=== PATIENT | female | born 1960 | race Caucasian/White ===

== ENCOUNTER 2023-03-23 21:48 | Emergency (ER) | payer MEDICARE, MEDICAID, SELFPAY ==
--- NOTE | ~2023-03-23 | CT_ITS ---
EXAMINATION: CT HEAD WITHOUT CONTRAST CLINICAL INFORMATION: Fall. COMPARISON: None. TECHNIQUE: Contiguous axial imaging was performed from the skull base to vertex without intravenous administration of contrast. Coronal and sagittal reformatted images are performed at the CT scanner. [This CT examination was performed using dose optimization techniques as appropriate, variously including the following: *Automated exposure control *Adjustment of mA and/or kV according to patient size (this includes techniques or standardized protocols for targeted exams where dose is matched to indication/reason for exam; i.e. extremities or head) *Use of iterative reconstruction technique] DLP: 610 mGy-cm. FINDINGS: Status post craniotomy the left tawspak-mjqutrre-kwgejsqt lobe and the right frontal-parietal lobe. There are associated areas of focal encephalomalacia adjacent to the craniotomy flaps in the right frontal lobe and the left frontal temporal lobe. Surgical clip in the supraclinoid area on the right. This causes streak artifact. There is no evidence of acute intracranial hemorrhage or territorial infarction. No abnormal mass-effect or midline shift is seen. Verma to white matter differentiation is well preserved. No extra-axial fluid collections are identified. The mastoid air cells and visualized portions of the paranasal sinuses are well-aerated. CT/CT head/brain wo IV con IMPRESSION: No acute intracranial pathology.
--- NOTE | ~2023-03-23 | XR_ITS ---
EXAMINATION: XR LUMBOSACRAL SPINE CLINICAL INFORMATION: Fall. COMPARISON: None available. TECHNIQUE: Three views of the lumbosacral spine. FINDINGS: Mild compression deformity of the L1 vertebral body. No evidence of subluxation. Mild multilevel intervertebral disc height loss. Small anterior osteophytes. Moderate facet arthropathy in the lower lumbar spine leading to certain degree of neural foraminal encroachment at L5-S1. SI joints are symmetric. No significant paraspinal soft tissue abnormality. XR/XR lumbar spine 2-3V IMPRESSION: 1. Mild compression deformity of the L1 vertebral body of indeterminate age. Correlate for point tenderness. 2. No evidence of traumatic subluxation. 3. Mild to moderate lumbar spondylosis.
[2023-03-23 22:01] VITALS: BP 160/88; BP 164/77; PULSE 60; PULSE 66; RESP 18; TEMP 36.7; O2SAT 98
--- NOTE | 2023-03-23 22:17 | ED_ITS ---
HPI - Fall General Chief Complaint: Fall Stated Complaint: SLIP AND FALL - LOC FROM CORRECTION Time Seen by Provider: 03/23/23 21:53 Source: patient Mode of arrival: EMS Limitations: no limitations History of Present Illness HPI Narrative: 62 yo female with PMH of seizures and HLD here with c/o falling backwards in a chair and hitting her head she now has a headache not on thinners and has low back pain. No n/v no numbness or weakness. MD complaint: fall Onset (ago): minute(s) (just prior to arrival ) Fall from: chair Fall witnessed: yes, by bystander Place fall occurred: home Loss of consciousness: none Prolonged down time: no Symptoms prior to fall: none Context: tripped/slipped Location of injury: head and back Severity: moderate Quality: dull and aching Associated symptoms (after fall): headache Related Data Previous Rx's Medication Instructions Recorded lidocaine 5 % topical patch 1 patch topical DAILY #30 ea 03/23/23 Allergies Allergy/AdvReac Type Severity Reaction Status Date / Time bee pollen [bee stings] Allergy Anaphylaxis Verified 03/23/23 22:20 peanut Allergy Anaphylaxis Verified 03/23/23 22:20 diphenhydramine AdvReac Unknown Verified 03/23/23 22:20 [From Benadryl] iodine AdvReac Unknown Verified 03/23/23 22:20 Review of Systems Review of Systems: Constitutional : No Fever, No Chills, No Fatigue ENT/Mouth : No sore throat, No Rhinorrhea Eyes: No Eye Pain, No Swelling, No Redness Cardiovascular : No Chest Pain, No SOB, No Dyspnea on Exertion Respiratory : No Cough, No Sputum Gastrointestinal : No Nausea, No Vomiting, No Diarrhea, No abdominal Pain Genitourinary : No Dysuria, No Urinary Frequency, No Hematuria, Musculoskeletal : No joint pain, No Myalgias, No Joint Swelling, pos back pain Skin : No Skin Lesions, No rash Neuro : No Weakness, No Numbness, No Dizziness, positive Headache Psych : No Anxiety/Panic, No Depression Heme/Lymph: No Bruising, No Bleeding,No Lymphadenopathy Endocrine : No Polyuria, No Polydipsia All other systems reviewed and are negative PMFSH Past Medical History Attestation statement: The following information was validated with the patient. Source: old records reviewed Medical History Hyperlipidemia Seizure Social History Social History (Updated 03/23/23 @ 22:19 by Mariana Ochoa DO) Patient Tobacco Use Status: Tobacco use Unknown Advance Directives: No Advance Directives Information Provided: Yes Physical Exam Vital Signs: Vital Signs: Last Vital Signs Temp 98.1 F 03/23/23 22:01 Pulse 66 03/23/23 22:01 Resp 18 03/23/23 22:01 BP 164/77 H 03/23/23 22:01 Pulse Ox 98 03/23/23 22:01 O2 Del Method Room Air 03/23/23 22:01 BMI result Body Mass Index 30.0 Appearance: Alert. Oriented X3. No acute distress. Eyes: Pupils equal, round and reactive to light. ENT: Pharynx normal. ttp and contusion noted on occiput Neck: Normal inspection. Neck supple. no midline ttp CVS: Normal heart rate and rhythm. Pulses normal. Respiratory: No respiratory distress. Breath sounds normal. Abdomen: Soft and nontender. Back: ttp along lower lumbar area no step offs Skin: Skin warm and dry. Normal skin color. Normal skin turgor. Extremities: No lower extremity edema. No calf ttp Neuro: Oriented X 3. No motor deficit. No sensory deficit. Course Course Course Narrative: has lower back pain could be compression fracture of L1 will DC home with PO medications and lidocaine patches Medical Decision Making Medical Decision Making [facility] Narrative: 62 yo female with PMH of seizures and HLD here with c/o fall out of chair not on thinners no LOC c/o headache and low back pain she is GCS 15 and has no numnbess or weakness no other injury distal NV intact can move legs this was mechanical in nature at this time xrays and CT head for trauma ordered. Differential Diagnosis Differential Diagnoses: The differential diagnosis associated with the presentation includes head injury, concussion, sprain, strain, ICH Admission/Observation Consideration of admission/observation: Escalation of care including admission/observation considered Independent Interpretation I performed an independent interpretation of an: Plain X-Ray and CT Scan Radiology Impression Discussion of test interpretation with radiology: I have reviewed the radiologist's reading. Independent Historian Clinical information obtained from an independent historian. History obtained from or confirmed by: EMS Discharge Plan Discharge Clinical Impression: Head injury Qualifiers: Encounter type: initial encounter Qualified Code(s): S09.90XA - Unspecified injury of head, initial encounter Back injury Qualifiers: Encounter type: initial encounter Qualified Code(s): S39.92XA - Unspecified injury of lower back, initial encounter Patient Disposition: Home, Self-Care Instructions: Head Injury (ED), Back Pain (ED) Additional Instructions: there is a possible lumbar compression fracture (crunching down) of L1 - this is mild but it is hard to say if it is new or old it is higher than where you say you have pain. you can take tylenol or motrin for this pain. we are going to prescribe you pain patches as well. return for vomiting, confusion, numbness, weakness, loss of control of bowel or bladder. your doctor can also follow up with you on this as well and maybe refer you to physical therapy if necessary your CT head was normal Prescriptions: New lidocaine 5 % adhesive patch,medicated 1 patch topical DAILY Qty: 30 0RF Rx Instructions: leave on most painful area for up to 12 hrs
== END 2023-03-23 23:25 | disposition home or self-care (01) ==
PROVIDERS: Emergency Provider Emergency Medicine; PCP Physician Assistant
DX: S09.90XA Unspecified injury of head, initial encounter (principal); S39.92XA Unspecified injury of lower back, initial encounter; W07.XXXA Fall from chair, initial encounter; Y93.9 Activity, unspecified; Y92.009 Unspecified place in unspecified non-institutional (private) residence as the place of occurrence of the external cause; Y99.9 Unspecified external cause status
CPT/HCPCS: 70450; 72100; 99282; 99284

== ENCOUNTER 2024-03-06 08:31 | Emergency (ER) | payer MEDICARE, MEDICAID, SELFPAY ==
--- NOTE | ~2024-03-06 | CT_ITS ---
EXAMINATION: CT HEAD WITHOUT CONTRAST CLINICAL INFORMATION: History of cerebral aneurysm, now complains of left upper limb numbness COMPARISON: CT scan of brain on 03/23/2023 TECHNIQUE: Contiguous axial imaging was performed from the skull base to vertex without intravenous administration of contrast. This CT examination was performed using dose optimization techniques as appropriate, variously including the following: *Automated exposure control *Adjustment of mA and/or kV according to patient size (this includes techniques or standardized protocols for targeted exams where dose is matched to indication/reason for exam; i.e. extremities or head) *Use of iterative reconstruction technique DLP: 678 mGy-cm FINDINGS: Ventricles, sulci and cisterns are dilated. There is marked asymmetric dilatation of left temporal horn.. Extensive cystic encephalomalacia is seen in the left temporal pole extending to posterior superior left temporal lobe. 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 Extensive cystic encephalomalacia is seen in the right frontal lobe and right external capsule, associated with mild asymmetric dilatation of the right frontal horn. Rectangular shape encephalomalacia is seen in lateral left frontal lobe starting above the left sylvian fissure. There is no midline shift, no abnormal intra- or extra- axial fluid accumulation. Verma and white matter differentiation is normal. Bone window images show no evidence of skull fracture. Unchanged extensive left frontal temporoparietal craniotomy bone flap, fixation with surgical plates, right frontal craniotomy bone flap, fixation with surgical plates are seen. CT/CT head/brain wo IV con IMPRESSION: 1. No acute intracranial hemorrhage or infarction. 2. Unchanged Extensive cystic encephalomalacia in the left temporal pole extending to posterior superior left temporal lobe. 3. Unchanged Extensive cystic encephalomalacia in the right frontal lobe and right external capsule. 4. Unchanged Rectangular shape encephalomalacia in lateral left frontal lobe starting above the left Sylvian fissure. 5. 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 6. Unchanged extensive left frontal temporoparietal craniotomy bone flap, fixation with surgical plates, right frontal craniotomy bone flap, fixation with surgical plates. 7. Unchanged cerebral atrophy and asymmetric ventriculomegaly as described above. Electronically signed by: Donald Boyd MD 03/06/2024 02:13 PM EDT
[2024-03-06 08:33] VITALS: BP 165/100; PULSE 60; O2SAT 96
[2024-03-06 08:35] VITALS: BP 154/83; PULSE 58; RESP 16; TEMP 36.9; O2SAT 98; BMI 29.2
--- NOTE | 2024-03-06 08:58 | ECG_ITS ---
Test Reason : PARASTHESIA Blood Pressure : / mmHG Vent. Rate : 056 BPM Atrial Rate : 056 BPM P-R Int : 170 ms QRS Dur : 098 ms QT Int : 444 ms P-R-T Axes : 033 -02 036 degrees QTc Int : 428 ms Sinus bradycardia Minimal voltage criteria for LVH, may be normal variant ( [place] product ) Borderline ECG No previous ECGs available Referred By: Mariana Ochoa Electronically Signed By:VICENTE TOLEDO
--- NOTE | 2024-03-06 08:59 | ED_ITS ---
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 It goes aware after some time. She has no other symptoms anywhere else. It has been two mornings in a row so she wanted to get checked out. Denies issues in the neck or neck pain no recent trauma. MD complaint: L hand tingling Onset (ago): day(s) (2) Location: left and upper extremity Radiation: non-radiation Severity: mild Relieving factors: none Exacerbating factors: other (sleeping) Associated symptoms: denies other symptoms Treatments prior to arrival: none Related Data Previous Rx's ?Medication ?Instructions ?Recorded lidocaine 5 % topical patch 1 patch topical DAILY #30 ea 03/23/23 Allergies Allergy/AdvReac Type Severity Reaction Status Date / Time bee pollen [bee stings] Allergy Anaphylaxis Verified 03/06/24 08:41 peanut Allergy Anaphylaxis Verified 03/06/24 08:41 diphenhydramine AdvReac Unknown Verified 03/06/24 08:41 [From Benadryl] iodine AdvReac Unknown Verified 03/06/24 08:41 Review of Systems 2 Review of Systems: Constitutional : No Fever, No Chills, No Fatigue ENT/Mouth : No sore throat, No Rhinorrhea Eyes: No Eye Pain, No Swelling, No Redness Cardiovascular : No Chest Pain, No SOB, No Dyspnea on Exertion Respiratory : No Cough, No Sputum Gastrointestinal : No Nausea, No Vomiting, No Diarrhea, No abdominal Pain Genitourinary : No Dysuria, No Urinary Frequency, No Hematuria, Musculoskeletal : No joint pain, No Myalgias, No Joint Swelling Skin : No Skin Lesions, No rash Neuro : No Weakness, pos Numbness, No Dizziness, no Headache Psych : No Anxiety/Panic, No Depression All other systems reviewed and are negative [facility] Past Medical History Attestation statement: The following information was validated with the patient. Source: old records reviewed Medical History Hyperlipidemia Seizure Social History Social History Alcohol intake: former Patient Tobacco Use Status: Tobacco use Unknown Smoked in Last 30 Days: No Use of substances other than those prescribed or required for medical reasons: No Advance Directives: No Advance Directives Information Provided: Yes Do you have a plan to hurt others: No Plan Patient : No Physical Exam ED Vital Signs: Vital Signs - 24 hr 03/06/24 08:35 03/06/24 09:48 Temperature 98.5 F 97.9 F Pulse Rate 58 58 Respiratory Rate 16 18 Blood Pressure 154/83 H 145/91 H Pulse Oximetry 98 98 Oxygen Delivery Method Room Air Room Air BMI result Body Mass Index 29.2 Appearance: Alert. Oriented X3. No acute distress. Eyes: Pupils equal, round and reactive to light. ENT: Pharynx normal. Neck: Normal inspection. Neck supple. CVS: Normal heart rate and rhythm. Pulses normal. Respiratory: No respiratory distress. Breath sounds normal. Abdomen: Soft and nontender. Skin: Skin warm and dry. Normal skin color. Normal skin turgor. Extremities: No lower extremity edema. Neuro: Oriented X 3. No motor deficit. No sensory deficit. 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 Will obtain basic labs, CT head given aneurysms - suspect more peripheral lesion as it is in the fingertips and she does not relay a motor component which seems more like peripheral nerve compression. Differential Diagnosis Differential Diagnoses: The differential diagnosis associated with the presentation includes peripheral nerve compression, parasthesia, anxiety Admission/Observation Consideration of admission/observation: Escalation of care including admission/observation considered no acute findings stable for DC Lab Data [facility] Lab Attestation statement: I reviewed the patient's lab results. 03/06/24 09:45 03/06/24 11:34 Labs: Lab Results 03/06/24 03/06/24 Range/Units 09:45 11:34 WBC 7.2 (4.8-10.8) X10*3/uL RBC 4.31 (4.20-5.50) X10*6/uL Hgb 13.7 (12.0-16.0) g/dl Hct 39.5 (37.0-47.0) % MCV 91.6 (80.0-98.0) fL MCH 31.8 (27.0-33.0) pg MCHC 34.7 (31.0-35.0) g/dl RDW 12.3 (11.0-16.0) % Plt Count 220 (160-400) X10*3/uL MPV 9.4 (9.4-12.3) fL Immature Gran % (Auto) 0.4 (0.0-0.4) % Neut % (Auto) 46.7 (45-73) % Lymph % (Auto) 43.2 H (20-40) % Grainger % (Auto) 6.0 (2-11) % Eos % (Auto) 2.9 (0-4) % Baso % (Auto) 0.8 (0-2) % Lymph # (Auto) 3.1 (1.2-4.9) X10*3/uL Grainger # (Auto) 0.4 (0.1-1.2) X10*3/uL Eos # (Auto) 0.2 (0.0-0.4) X10*3/uL Baso # (Auto) 0.1 (0.0-0.2) X10*3/uL Abs Immat Gran (auto) 0.03 (0.00-0.03) X10*3/uL Absolute Neuts (auto) 3.4 (2.0-8.3) x10*3/uL Absolute Nucleated RBC 0.000 (0.0-0.012) X10*3/uL Nucleated RBC % (auto) 0.0 (0.0-0.2) /100WBC PT 11.8 (11.1-13.3) SEC INR 1.0 (0.9-1.1) Sodium 142 (135-145) mmol/L Potassium 4.0 (3.3-5.1) mmol/L Chloride 111 H (96-108) mmol/L Carbon Dioxide 23 (22-29) mmol/L Anion Gap 12 (12-20) BUN 13 (9-16) mg/dL Creatinine 0.83 (0.5-1.4) mg/dL Estim Creat Clear Calc 72.3 Estimated GFR > 60 Random Glucose 93 (60-115) mg/dL Calcium 8.8 (8.4-10.2) mg/dL Magnesium 1.9 (1.6-2.6) mg/dL Total Bilirubin 0.5 (0.0-1.0) mg/dL Direct Bilirubin 0.1 (0.0-0.5) mg/dL AST 18 (5-31) U/L ALT 16 (0-31) U/L Alkaline Phosphatase 78 (39-117) U/L Troponin I High Sens < 2.7 (<3.5-17.0) ng/L Total Protein 6.8 (6.5-8.0) g/dL Albumin 4.1 (3.5-5.0) g/dL Lipase 137 H (8-78) U/L Independent Interpretation I performed an independent interpretation of an: EKG and CT Scan (unchanged) Interpretation: Rate: 56 Rhythm: sinus bradycardia [place]: left Normal P waves. Normal ERVIN. Normal QRS complex. ST T wave : inverted t waves V1, no ARY qTC: 428 prior studies: no acute ischemia The study has been interpreted contemporaneously by me. . Radiology Impression Discussion of test interpretation with radiology: I have reviewed the radiologist's reading. Independent Historian Clinical information obtained from an independent historian. History obtained from or confirmed by: EMS External Record Review External record reviewed: Outpatient record Discharge Plan Discharge Clinical Impression: Paresthesia of hand Patient Disposition: Home, Self-Care Instructions: Paresthesia (ED) Additional Instructions: no acute findings on exam today at this time CT head negative follow up with your doctor return for any worsening symptoms or concerns CT/CT head/brain wo IV con IMPRESSION: 1. No acute intracranial hemorrhage or infarction. 2. Unchanged Extensive cystic encephalomalacia in the left temporal pole extending to posterior superior left temporal lobe. 3. Unchanged Extensive cystic encephalomalacia in the right frontal lobe and right external capsule. 4. Unchanged Rectangular shape encephalomalacia in lateral left frontal lobe starting above the left Sylvian fissure. 5. 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 6. Unchanged extensive left frontal temporoparietal craniotomy bone flap, fixation with surgical plates, right frontal craniotomy bone flap, fixation with surgical plates. 7. Unchanged cerebral atrophy and asymmetric ventriculomegaly as described above. Prescriptions: No Action lidocaine 5 % adhesive patch,medicated 1 patch topical DAILY Qty: 30 0RF Rx Instructions: leave on most painful area for up to 12 hrs Print Language: Ukrainian
[2024-03-06 09:48] VITALS: BP 145/91; PULSE 58; RESP 18; TEMP 36.6; O2SAT 98
[2024-03-06 09:54] LABS: MANUAL DIFF FLAG NO
[2024-03-06 09:56] LABS: Basophils Absolute Auto 0.1 X10*3/uL (0.0-0.2); Basophils Percent Auto 0.8 % (0-2); Eosinophils Absolute Auto 0.2 X10*3/uL (0.0-0.4); Eosinophils Percent Auto 2.9 % (0-4); Hematocrit 39.5 % (37.0-47.0); Hemoglobin 13.7 g/dl (12.0-16.0); Imm Gran Abs Auto 0.03 X10*3/uL (0.00-0.03); Imm Gran Pct Auto 0.4 % (0.0-0.4); Lymphocytes Absolute Auto 3.1 X10*3/uL (1.2-4.9); Lymphocytes Percent Auto 43.2 % (20-40); Mean Corpuscular HGB Conc 34.7 g/dl (31.0-35.0); Mean Corpuscular Hemoglobin 31.8 pg (27.0-33.0); Mean Corpuscular Volume 91.6 fL (80.0-98.0); Mean Platelet Volume 9.4 fL (9.4-12.3); Monocytes Absolute Auto 0.4 X10*3/uL (0.1-1.2); Neutrophils Absolute Auto 3.4 x10*3/uL (2.0-8.3); Neutrophils Percent Auto 46.7 % (45-73); Platelet Count 220 X10*3/uL (160-400); Red Blood Count 4.31 X10*6/uL (4.20-5.50); Red Cell Distribution Width 12.3 % (11.0-16.0); White Blood Count 7.2 X10*3/uL (4.8-10.8)
[2024-03-06 10:07] LABS: Prothrombin Time 11.8 SEC (11.1-13.3)
[2024-03-06 10:20] LABS: Troponin-I High Sensitivity < 2.7 ng/L (<3.5-17.0)
[2024-03-06 12:12] LABS: Alanine Aminotransferase 16 U/L (0-31); Albumin Level 4.1 g/dL (3.5-5.0); Alkaline Phosphatase 78 U/L (39-117); Anion Gap 12 (12-20); Aspartate Amino Transferase 18 U/L (5-31); Bilirubin Direct 0.1 mg/dL (0.0-0.5); Bilirubin Total 0.5 mg/dL (0.0-1.0); Blood Urea Nitrogen 13 mg/dL (9-16); Calcium 8.8 mg/dL (8.4-10.2); Carbon Dioxide 23 mmol/L (22-29); Chloride 111 mmol/L (96-108); Creatinine Clr Calc Pharmacy 72.3; Estimated Glomerular Filt Rate > 60; Glucose Random 93 mg/dL (60-115); Lipase 137 U/L (8-78); Magnesium 1.9 mg/dL (1.6-2.6); Sodium 142 mmol/L (135-145); Total Protein 6.8 g/dL (6.5-8.0)
[2024-03-06 14:30] VITALS: BP 143/82; PULSE 77; RESP 18; TEMP 36.6; O2SAT 98
== END 2024-03-06 14:31 | disposition home or self-care (01) ==
PROVIDERS: Emergency Provider Emergency Medicine; PCP Physician Assistant
DX: R20.2 Paresthesia of skin (principal); R00.1 Bradycardia, unspecified; F41.9 Anxiety disorder, unspecified; I10 Essential (primary) hypertension; Z79.899 Other long term (current) drug therapy
CPT/HCPCS: 36415; 70450; 80048; 80076; 83690; 83735; 84484; 85025; 85610; 93005; 99284

== ENCOUNTER 2024-07-24 10:57 | Emergency (ER) | payer MEDICARE, MEDICAID, SELFPAY ==
[2024-07-24 11:14] VITALS: BP 149/83; BP 151/79; PULSE 62; PULSE 66; RESP 14; TEMP 36.8; O2SAT 95; O2SAT 96; BMI 30.6
--- NOTE | 2024-07-24 11:18 | ED.GENADULT ---
HPI - General Adult General Chief complaint: Eye Problems Stated complaint: from [facility], popped blood vessel L eye, hx aneurysm Time Seen by Provider: 07/24/24 11:15 Source: patient and EMS Mode of arrival: EMS Limitations: no limitations History of Present Illness ED Provider: Chelle Newton PA-C HPI narrative: Patient is a 64 year old assigned female at with a history of brain aneurysm with clips presenting to the emergency department today with left eye redness and painful / more frequent urination. Patient states that over the last 3 days she has had redness in her left eye that is not painful but she was concerned given her aneurysm history. Patient denies any visual disturbance or headache. Patient states that she would also like her urine checked because she is having increased urinary frequency and pain with urination. Patient denies any dizziness, lightheadedness, abdominal pain, nausea, vomiting, fever, chills, blurry vision, double vision, loss of vision, chest pain, difficulty breathing, shortness of breath, back pain, night sweats, increased urinary urgency, blood in her urine or stool, syncope or a near syncopal episode, recent trauma or falls, bowel incontinence, bladder incontinence, or any other complaints at this time. Onset (ago): day(s) (3) Location: eyes and left Relieving factors: none Exacerbating factors: none Associated symptoms: denies other symptoms Treatments prior to arrival: none Related Data Previous Rx's ?Medication ?Instructions ?Recorded lidocaine 5 % topical patch 1 patch topical DAILY #30 ea 03/23/23 cefuroxime axetil 250 mg tablet 250 mg PO BID 7 days #14 tabs 07/24/24 Allergies Allergy/AdvReac Type Severity Reaction Status Date / Time bee pollen [bee stings] Allergy Anaphylaxis Verified 07/24/24 11:15 peanut Allergy Anaphylaxis Verified 07/24/24 11:15 diphenhydramine AdvReac Unknown Verified 07/24/24 11:15 [From Benadryl] iodine AdvReac Unknown Verified 07/24/24 11:15 Review of Systems Constitutional: Constitutional: Reports no additional constitutional complaints, Denies chills, Denies fever(s) and Denies night sweats Eyes: Eyes: Reports no additional eye complaints, Denies blurry vision, Denies change in vision, Denies diplopia, Denies eye discharge, Denies loss of vision and Denies eye pain Comments: left eye redness ENT: Denies dizziness Cardiovascular: Cardiovascular: Reports no additional cardiovascular complaints, Denies chest pain, Denies lightheadedness, Denies Loss of Consciousness and Denies dyspnea Respiratory: Respiratory: Reports no additional respiratory complaints and Denies dyspnea Gastrointestinal: Gastrointestinal: Reports no additional gastrointestinal complaints, Denies abdominal pain, Denies melena, Denies hematochezia, Denies change in bowel habits and Denies change in stool character Genitourinary: Genitourinary: Denies hematuria, Denies urinary frequency, Reports dysuria, Denies urinary incontinence, Denies urinary hesitancy and Denies urinary urgency Musculoskeletal: Musculoskeletal: Reports no additional musculoskeletal complaints, Denies numbness and Denies tingling Neurologic: Denies dizziness, Denies loss of vision, Denies numbness and Denies tingling Psychiatric: Psychiatric: Reports no additional psychiatric complaints Endocrine: Endocrine: Reports no additional endocrine complaints Hematologic/Lymphatic: Hematologic/Lymphatic: Reports no additional hematologic/lymphatic complaints Allergic/Immunologic: Allergic/Immunologic: Reports no additional allergic/immunologic complaints PMFSH Past Medical History Attestation statement: The following information was validated with the patient. Source: old records reviewed and nursing notes reviewed Medical History Hyperlipidemia Seizure Social History Social History Alcohol intake: former Patient Tobacco Use Status: Tobacco use Unknown Smoked in Last 30 Days: No Use of substances other than those prescribed or required for medical reasons: No Advance Directives: Yes Advance Directives on File: No Do you have a plan to hurt others: No Plan Physical Exam ED Vital Signs: Vital Signs - 24 hr 07/24/24 11:14 07/24/24 12:45 07/24/24 13:27 Temperature 98.2 F 98.1 F 98.1 F Pulse Rate 62 60 60 Respiratory Rate 14 14 14 Blood Pressure 151/79 H 148/87 H 148/87 H Pulse Oximetry 95 95 95 Oxygen Delivery Method Room Air Room Air Room Air BMI result Body Mass Index 30.6 Const General: cooperative, no acute distress, alert and awake Nutritional Appearance: well nourished Orientation/consciousness: patient oriented x3 Limitations: no limitations HENMT Head: Yes normal to inspection and Yes atraumatic Ears: hearing grossly normal bilaterally and external ears normal General nose exam: Normal external nose present, no nasal discharge noted and no epistaxis Face and sinus: Yes normal facial exam, No abrasion and No laceration Mouth: Normal oral and palatal mucosa present, no drooling and no muffled voice Eyes Periorbital: periorbital findings normal Eyelids: Yes eyelids normal Pupils: Equal, round and reactive pupils present EOM: EOMs intact bilaterally Eyes/upper lids images: 1. small area of subconjunctival hemorrhage Neck Neck: Yes normal visual inspection, Yes full ROM and Yes no lymphadenopathy Chest Chest palpation & inspection: normal inspection of the chest Resp Effort & Inspection: normal respiratory effort and able to speak in complete sentences GI Inspection: Yes normal to inspection Neuro General: patient oriented x3 and moves all extremities Cranial nerves: Yes Equal, round and reactive pupils present Cognition (Neuro): normal cognition Extrem General: Yes normal to inspection, Yes full ROM and Yes capillary refill normal Psych Appearance: grossly normal Mental Status: mental status grossly normal Affect: normal affect Attitude: cooperative Thought process: Normal thought process present Thought content: Normal thought content present Insight: Good insight present (Psych) Medical Decision Making Medical Decision Making MDM Narrative: Patient is a 64 year old assigned female at with a history of brain aneurysm with clips presenting to the emergency department today with left eye redness and painful / more frequent urination. Patient's physical exam was as noted in the physical exam portion of this note. Patient's urine showed a possible UTI, given her complaints, will treat. I explained my physical exam findings as well as all test results to the patient. I answered all questions asked by the patient. I stressed the importance of the patient taking her medication as directed (either prescribed or as the over the counter packaging recommends). I stressed the importance of the patient following up with her primary care provider. I stressed the importance of the patient returning to the emergency department immediately if her symptoms were to worsen or if she were to develop any dizziness, shortness of breath, difficulty breathing, chest pain, blurry vision, loss of vision, nausea, vomiting, abdominal pain, fever, chills, back pain, or any other complaints. Patient verbalized agreement and understanding with this treatment plan and discharge. Differential Diagnosis Differential Diagnoses: The differential diagnosis associated with the presentation includes Subconjunctival hemorrhage UTI Admission/Observation Consideration of admission/observation: Escalation of care including admission/observation considered Patient would have been admitted to the hospital had her work up had any findings where hospital admission was appropriate and her clinical presentation warranted hospital admission. Lab Data [facility] Lab Attestation statement: I reviewed the patient's lab results. My interpretation of these results are in the [facility] Rationale portion of this note. Labs: Lab Results 07/24/24 Range/Units 12:48 Urine Color Yellow Urine Appearance Clear Urine pH 6.0 (5.0-9.0) Ur Specific [place] 1.020 (1.005-1.025) Urine Protein Negative (Neg-Trace) mg/dL Urine Glucose (UA) Negative (Negative) mg/dL Urine Ketones Negative (Negative) mg/dL Urine Blood Negative (Negative) Urine Nitrite Negative (Negative) Ur Leukocyte Esterase Large (3+) H (Negative) Urine RBC 0-2 (0-2) /HPF Urine WBC 0-5 (0-5) /HPF Ur Squamous Epith Cells 3-5 (0-2) /HPF Ur Transition Epith Cell Present Calcium Oxalate Crystal Present Urine Bacteria Trace (None Seen) Hyaline Casts 0-2 (0-2) /LPF Independent Historian Clinical information obtained from an independent historian. History obtained from or confirmed by: EMS (EMS provided additional history and confirmed the history provided by the patient.) Tests considered The following testing was considered but not selected: I considered obtaining a CBC, CMP, and dry + angio head CT. However, the patient's current clinical presentation did not warrant this. I discussed this with the patient and the residential staff at the bedside who both verbalized understanding and agreement. Prescription Management I considered prescription management with: Antibiotic (patient has possible UTI, given symptoms and UA, antibiotic prescribed.) Discharge Plan Discharge Clinical Impression: Subconjunctival hemorrhage, Cystitis Patient Disposition: Home, Self-Care Instructions: Urinary Tract Infection in Women (DC), Subconjunctival Hemorrhage (ED) Additional Instructions: Follow up with your primary care provider. Return to the emergency department immediately if your symptoms worsen or if you develop any dizziness, shortness of breath, difficulty breathing, chest pain, blurry vision, loss of vision, nausea, vomiting, abdominal pain, fever, chills, back pain, or any other complaints. Prescriptions: New cefuroxime axetil 250 mg tablet 250 mg PO BID 7 Days Qty: 14 0RF No Action lidocaine 5 % adhesive patch,medicated 1 patch topical DAILY Qty: 30 0RF Rx Instructions: leave on most painful area for up to 12 hrs Referrals: Olinda Maloney PA [Primary Care Provider] - Interventions: ED Discharge Assessment Last Done: 07/24/24 13:27 Discharge Date/Time: 07/24/24 13:28 Print Language: Beninese
[2024-07-24 12:45] VITALS: BP 148/87; PULSE 60; RESP 14; TEMP 36.7; O2SAT 95
[2024-07-24 12:53] LABS: Appearance Urine Clear; Color Urine Yellow; Glucose Urine UA Negative (Negative); Leukocyte Esterase Urine Large (3+) (Negative); Nitrite Urine Negative (Negative); UMIC TRIGGER UACC YES; Urine Blood Negative (Negative); Urine Ketones Negative (Negative); Urine Protein Negative (Neg-Trace)
[2024-07-24 13:06] LABS: Bacteria Urine Trace (None Seen); Calcium Oxalate Crystals Urine Present; Hyaline Casts Urine 0-2 /LPF (0-2); RBC Urine 0-2 /HPF (0-2); UACC Culture Trigger YES; WBC Urine 0-5 /HPF (0-5)
[2024-07-24 13:07] LABS: Transitional Epi Cells Urine Present
[2024-07-24 13:27] VITALS: BP 148/87; PULSE 60; RESP 14; TEMP 36.7; O2SAT 95
== END 2024-07-24 13:28 | disposition home or self-care (01) ==
PROVIDERS: Physician Assistant Medical; Emergency Provider Emergency Medicine; PCP Physician Assistant
DX: H11.32 Conjunctival hemorrhage, left eye (principal); N30.90 Cystitis, unspecified without hematuria
CPT/HCPCS: 81001; 87086; 99283; 99284